=== PATIENT | female | born 1995 | race Caucasian/White ===

== ENCOUNTER 2017-07-20 08:38 | Emergency (ER) | payer SELFPAY ==
[~2017-07-20] VITALS: Ht 162.6 cm; Wt 91.7 kg
[2017-07-20 08:46] VITALS: BP 142/91
--- NOTE | 2017-07-20 09:00 | NUR ---
PATIENT TO BED 6 AT THIS TIME.
--- NOTE | 2017-07-20 09:08 | NUR ---
PATIENT PRESENTS TO ED WITH DYSPHAGIA, PAIN UPON SWALLOWING . PT STATES . DENIES N/V/D; SKIN IS PINK/WARM/DRY; AAOX4 WITH EVEN AND STEADY GAIT; LUNGS CLEAR BL; HR EVEN AND REGULAR; PT DENIES ANY FEVER, CP, SOB, OR COUGH AT THIS TIME; PATIENT STATES PAIN OF 8/10 AT THIS TIME; VSS; PATIENT POSITIONED FOR COMFORT; HOB ELEVATED; BEDRAILS UP X2; BED DOWN. ER MD MADE AWARE OF PT STATUS.
[2017-07-20 09:46] VITALS: BP 132/87
== END 2017-07-20 09:45 | disposition home or self-care (01) ==
LOC: MED 08:38
DX: J03.90 Acute tonsillitis, unspecified (principal); J02.9 Acute pharyngitis, unspecified
CPT/HCPCS: 99283